=== PATIENT | female | born 1950 | race Caucasian/White ===

== ENCOUNTER 2017-08-18 09:27 | Day surgery (SDC) | payer OTHER, MEDICARE ==
[2017-08-17 16:12] VITALS: BMI 22.4
[~2017-08-18 09:27] MED LIST: Cyclopentolate 1% Opth Drop 2 ML BOT FS SCH; Fluorouracil 100 MG, Enoxaparin Sodium 25 MG, EPINEPHrine 0.3 MG in Ophthalmic Irrigati... IVPB SCH; Lidocaine 1% PF 5 ML VIAL ONE; PROPOFOL 200 MG/20 ML VIAL ONE; Phenylephrine 2.5% Ophth Soln 5 ML BOT FS SCH
[2017-08-18] MEDS ORDERED: Cyclopentolate 1% Opth Drop 2 ML BOT ONE (10:01)
[2017-08-18] MEDS ORDERED: Phenylephrine 2.5% Ophth Soln 5 ML BOT ONE (10:01)
[2017-08-18] MEDS ORDERED: PROPOFOL 20 ML ONE (11:55)
[2017-08-18] MEDS ORDERED: Midazolam HCl 2 mg/2 ml Vial ONE (11:55)
[2017-08-18] MEDS ORDERED: Fentanyl 100 MCG/2 ML VIAL ONE (11:55)
[2017-08-18] MEDS ORDERED: Lidocaine 2% 10 ML INJ ONE (11:55)
--- NOTE | 2017-08-18 16:11 | OP ---
DATE OF SURGERY: 08/18/2017 PREOPERATIVE DIAGNOSIS: Rhegmatogenous retinal detachment, right eye. POSTOPERATIVE DIAGNOSIS: Rhegmatogenous retinal detachment, right eye. PROCEDURE: Pars plana vitrectomy and retinal detachment repair, right eye. SURGEON: Modesto Cosby M.D. ANESTHESIA: Local with monitored anesthesia care. COMPLICATIONS: None. PROCEDURE IN DETAIL: The patient identified in the preoperative holding area. Appropriate informed consent for the planned surgical procedure on the right eye had been obtained. The patient was trans ported to the operative suite. Appropriate cardiopulmonary established. Local anesthesia obtained u sing retrobulbar and modified Van Lint lid block using 50:50 mixture of 4% lidocaine and 0.75% bupiva jg. The patient was prepped and draped in usual sterile manner [facility]. Lid speculum was placed in light eye. The 25-gauge trocars placed in conjunctiva and sclera supratemporally, inferotemporally and supranasally. Infusion line was placed inferotemporally. Ligh t pipe and vitreous cutter inserted into the eye and core vitrectomy was performed. Attention was tu rned to the tears at 12 o'clock, 10 o'clock position. Vitreous was trimmed from the tears. Posterio r drain retinotomy was created along the 8 o'clock meridian. Complete air fluid exchange was perform ed with 10 minutes being allowed for fluid to drain posteriorly. A 360 laser was placed using endola ser delivery device. A 28% sulfur hexafluoride gas was infused into the eye. Trocars were removed a nd eye was noted to retain pressure well. Retrobulbar Kenalog and subconjunctival Ancef were placed. Atropine and antibiotic ointment were placed and the eye was patched and shielded. The patient was taken to the postoperative recovery unit in good condition having suffered no immediate perioperativ e complications. DISCHARGE INSTRUCTIONS: Patient was instructed to remain right side down and follow up in the [facility] with Dr. Cosby.
== END 2017-08-18 13:47 | disposition home or self-care (01) ==
LOC: SDC 09:27
PROVIDERS: ATTEND Ophthalmology Retina Specialist
PROC: 08T43ZZ Resection of Right Vitreous, Percutaneous Approach (ICD-10-PCS; principal; 2017-08-18)
DX: H33.021 Retinal detachment with multiple breaks, right eye (principal)
CPT/HCPCS: 67025; J0171; J1650; J2001; J2250; J2704; J3010; J9190

== ENCOUNTER 2021-09-19 21:30 | Inpatient (IN) | payer MEDICARE ==
[2021-09-19] MEDS ORDERED: Ondansetron PF 4 MG/2 ML Vial ONE (22:03)
[2021-09-19] MEDS ORDERED: HYDROmorphone 0.5 MG/0.5 ML SYRINGE ONE (22:03)
[2021-09-19] MEDS ORDERED: Ketorolac Tromethamine 30 MG/ML VIAL ONE (22:03)
[2021-09-19 22:38] LABS: #Basophils 0.1 thou/uL (0.0-0.2); #Eosinphils 0.1 thou/uL (0.0-0.7); #Monocytes 0.6 thou/uL (0.11-0.59); #Neutrophils 6.3 thou/uL (1.40-6.50); %Basophils 1.2 % (0.0-1.0); %Eosinophils 1.6 % (0.0-10.0); %Lymphocytes 21.7 % (21.0-51.0); %Monocytes 6.1 % (0.0-10.0); %Neutrophils 69.4 % (42.0-75.0); Hemoglobin 11.6 g/dL (12.0-16.0); Mean Corpuscular HGB CONC 33.8 g/dL (32.0-36.0); Mean Corpuscular Hemoglobin 32.4 pg (27.0-31.0); Mean Corpuscular Volume 95.8 fL (78.0-98.0); Mean Platelet Volume 6.9 fL (7.4-10.4); Platelet Count 257 thou/uL (130-400); Red Blood Cell (RBC) Count 3.58 mill/uL (4.20-5.40); White Blood Cell (WBC) Count 9.1 thou/uL (4.8-10.8)
[2021-09-19] MEDS ORDERED: Morphine 2 MG/ML VIAL SLOW IVP PRN (22:55)
[2021-09-19] MEDS ORDERED: Ondansetron PF 4 MG/2 ML Vial IVP PRN (22:55)
[2021-09-19] MEDS ORDERED: Dextrose 5% in Water 1,000 ML IV PRN (22:55)
[2021-09-19] MEDS ORDERED: Morphine 4 MG/ML VIAL SLOW IVP PRN (22:55)
[2021-09-19] MEDS ORDERED: Promethazine HCl 25 MG/ML VIAL IM PRN (22:55)
[2021-09-19] MEDS ORDERED: Ondansetron ODT 4 MG TAB PO PRN (22:55)
[2021-09-19] MEDS ORDERED: Dextrose 50% Abboject 50 ML SYRINGE SLOW IVP PRN (22:55)
[2021-09-19] MEDS ORDERED: hydrALAZINE 20 MG/ML VIAL SLOW IVP PRN (22:55)
[2021-09-19 22:58] LABS: ALT (SGPT) 14 U/L (8-55); AST (SGOT) 16 U/L (5-34); Alkaline Phosphatase 73 U/L (40-110); Anion Gap 14 mmol/L (10-20); BUN (Urea Nitrogen) 18 mg/dL (9.8-20.1); Bilirubin, Total 0.5 mg/dL (0.2-1.2); Calc. Creatinine Clearance 0 mL/min (70-130); Calcium 8.6 mg/dL (7.8-10.44); Carbon Dioxide 23 mmol/L (23-31); Chloride 104 mmol/L (98-107); Globulin 2.2 g/dL (2.4-3.5); Glucose 97 mg/dL (80-115); Potassium 3.8 mmol/L (3.5-5.1); Protein, Total 6.2 g/dL (5.8-8.1); Sodium 137 mmol/L (136-145)
[2021-09-19] MEDS ORDERED: Sodium Chloride 0.9% 1,000 ML IV SCH (23:00)
[2021-09-19 23:23] LABS: Magnesium 2.1 mg/dL (1.6-2.6); Phosphorus 3.1 mg/dL (2.3-4.7)
[2021-09-20] MEDS: Acetaminophen 500 MG TAB PO SCH ×5 (00:18→20:56)
[2021-09-20] MEDS: traMADol HCl 50 MG TAB PO SCH ×5 (00:18→20:54)
[2021-09-20] MEDS: Cyclobenzaprine 10 MG TAB PO PRN ×2 (00:19→20:53)
[2021-09-20 01:09] VITALS: BMI 23.5
[2021-09-20 03:35] LABS: SARS-CoV-2 NAA Rapid Test Not Detected (NotDetected)
[2021-09-20] MEDS ORDERED: Ketorolac Tromethamine 30 MG/ML VIAL IVP SCH (06:00)
[2021-09-20] MEDS ORDERED: Morphine 4 MG/ML VIAL SLOW IVP PRN (07:54)
[2021-09-20] MEDS: Famotidine 20 MG TAB PO SCH ×2 (08:02→20:56)
[2021-09-20] MEDS: Senokot S 8.6-50 MG TAB PO SCH ×2 (08:02→20:57)
[2021-09-20] MEDS: Polyethylene Glycol 3350 17 GM Packet PO SCH (08:02)
[2021-09-20] MEDS ORDERED: Ibuprofen 200 MG TAB PO PRN (08:03)
[2021-09-20] MEDS: Fluticasone Propionate Nasal Spray 16 gm Bottle NASAL SCH (08:19)
[2021-09-20] MEDS ORDERED: ceFAZolin 2 GM/Dextrose 50 ML 2 GM in Premix Bag 1 BAG IVPB SCH (08:30)
[2021-09-20] MEDS: Loratadine 10 MG TAB PO SCH (09:20)
[2021-09-20] MEDS ORDERED: CEFAZOLIN 2 GM VIAL ONE (10:22)
[2021-09-20] MEDS ORDERED: Sodium Chloride 0.9% 100 ML ONE (10:22)
[2021-09-20] MEDS ORDERED: fentaNYL Citrate/PF 100 MCG/2 ML SYRINGE ONE (10:25)
[2021-09-20] MEDS ORDERED: Dexmedetomidine 200 MCG/2 ML VIAL ONE (10:26)
[2021-09-20] MEDS ORDERED: PROPOFOL 200 MG/20 ML VIAL ONE (11:29)
[2021-09-20] MEDS ORDERED: Dexamethasone 20 MG/5 ML VIAL ONE (11:29)
[2021-09-20] MEDS ORDERED: Lidocaine 1% PF 5 ML VIAL ONE (11:29)
[2021-09-20] MEDS ORDERED: Ondansetron PF 4 MG/2 ML Vial ONE (11:29)
[2021-09-20] MEDS ORDERED: ePHEDrine 50 MG/ML VIAL ONE (11:29)
[2021-09-20] MEDS ORDERED: Fentanyl 100 MCG/2 ML VIAL ONE (12:45)
[2021-09-20] MEDS ORDERED: Ondansetron HCl/PF 4 MG/2 ML Vial IVP PRN (12:45)
[2021-09-20] MEDS ORDERED: Promethazine HCl 25 MG/ML VIAL IM PRN (12:45)
[2021-09-20] MEDS ORDERED: Promethazine HCl 25 MG/ML VIAL IVPB PRN (12:45)
[2021-09-20] MEDS: CEFAZOLIN 2 GM in Sodium Chloride 0.9% 100 ML IVPB SCH (18:32)
[2021-09-20] MEDS: traMADol HCl 50 MG TAB PO PRN (20:54)
[2021-09-21] MEDS: Acetaminophen 500 MG TAB PO SCH ×4 (03:20→20:26)
[2021-09-21] MEDS: traMADol HCl 50 MG TAB PO SCH ×4 (03:21→20:26)
[2021-09-21] MEDS: CEFAZOLIN 2 GM in Sodium Chloride 0.9% 100 ML IVPB SCH (03:21)
[2021-09-21 05:45] LABS: #Lymphocytes 0.7 thou/uL (1.20-3.40); #Monocytes 0.9 thou/uL (0.11-0.59); %Basophils 0.1 % (0.0-1.0); %Eosinophils 0.1 % (0.0-10.0); %Lymphocytes 6.2 % (21.0-51.0); %Monocytes 8.2 % (0.0-10.0); %Neutrophils 85.4 % (42.0-75.0); Hemoglobin 10.6 g/dL (12.0-16.0); Mean Corpuscular HGB CONC 33.6 g/dL (32.0-36.0); Mean Corpuscular Hemoglobin 32.6 pg (27.0-31.0); Mean Corpuscular Volume 97.1 fL (78.0-98.0); Mean Platelet Volume 7.4 fL (7.4-10.4); Platelet Count 210 thou/uL (130-400); Red Blood Cell (RBC) Count 3.25 mill/uL (4.20-5.40); White Blood Cell (WBC) Count 10.5 thou/uL (4.8-10.8)
[2021-09-21 06:18] LABS: Anion Gap 12 mmol/L (10-20); BUN (Urea Nitrogen) 22 mg/dL (9.8-20.1); Calc. Creatinine Clearance 65 mL/min (70-130); Calcium 8.5 mg/dL (7.8-10.44); Carbon Dioxide 24 mmol/L (23-31); Chloride 105 mmol/L (98-107); Glucose 131 mg/dL (80-115); Magnesium 2.3 mg/dL (1.6-2.6); Phosphorus 3.7 mg/dL (2.3-4.7); Potassium 4.7 mmol/L (3.5-5.1); Sodium 136 mmol/L (136-145)
[2021-09-21] MEDS ORDERED: PHOS-NAK 1 PKT PACK PO SCH (08:00)
[2021-09-21] MEDS: Famotidine 20 MG TAB PO SCH ×2 (08:28→20:25)
[2021-09-21] MEDS: Aspirin 81 mg Enteric Coated Tablet PO SCH ×2 (08:28→20:28)
[2021-09-21] MEDS: Fluticasone Propionate Nasal Spray 16 gm Bottle NASAL SCH (08:29)
[2021-09-21] MEDS: Loratadine 10 MG TAB PO SCH (08:29)
[2021-09-21] MEDS: Polyethylene Glycol 3350 17 GM Packet PO SCH (08:29)
[2021-09-21] MEDS: Senokot S 8.6-50 MG TAB PO SCH ×2 (08:29→20:28)
[2021-09-21] MEDS: Cyclobenzaprine 10 MG TAB PO PRN (20:25)
[2021-09-21] MEDS: traMADol HCl 50 MG TAB PO PRN (20:27)
[2021-09-22] MEDS: Acetaminophen 500 MG TAB PO SCH ×4 (02:29→21:30)
[2021-09-22] MEDS: traMADol HCl 50 MG TAB PO SCH ×3 (02:30→21:31)
[2021-09-22 05:28] LABS: #Basophils 0.1 thou/uL (0.0-0.2); #Eosinphils 0.2 thou/uL (0.0-0.7); #Monocytes 0.9 thou/uL (0.11-0.59); #Neutrophils 6.6 thou/uL (1.40-6.50); %Basophils 0.6 % (0.0-1.0); %Eosinophils 2.4 % (0.0-10.0); %Lymphocytes 19.9 % (21.0-51.0); %Monocytes 9.6 % (0.0-10.0); %Neutrophils 67.5 % (42.0-75.0); Mean Corpuscular HGB CONC 33.4 g/dL (32.0-36.0); Mean Corpuscular Hemoglobin 32.8 pg (27.0-31.0); Mean Corpuscular Volume 98.3 fL (78.0-98.0); Mean Platelet Volume 7.4 fL (7.4-10.4); Platelet Count 205 thou/uL (130-400); RBC Distribution Width 11.4 % (11.5-14.5); Red Blood Cell (RBC) Count 3.04 mill/uL (4.20-5.40); White Blood Cell (WBC) Count 9.8 thou/uL (4.8-10.8)
[2021-09-22 06:42] LABS: Anion Gap 15 mmol/L (10-20); BUN (Urea Nitrogen) 34 mg/dL (9.8-20.1); Calc. Creatinine Clearance 33 mL/min (70-130); Calcium 8.9 mg/dL (7.8-10.44); Carbon Dioxide 23 mmol/L (23-31); Chloride 102 mmol/L (98-107); Glucose 96 mg/dL (80-115); Magnesium 2.5 mg/dL (1.6-2.6); Phosphorus 3.4 mg/dL (2.3-4.7); Potassium 4.5 mmol/L (3.5-5.1); Sodium 135 mmol/L (136-145)
[2021-09-22] MEDS: Aspirin 81 mg Enteric Coated Tablet PO SCH ×2 (08:54→21:31)
[2021-09-22] MEDS: Loratadine 10 MG TAB PO SCH (08:54)
[2021-09-22] MEDS: Famotidine 20 MG TAB PO SCH (08:54)
[2021-09-22] MEDS: Fluticasone Propionate Nasal Spray 16 gm Bottle NASAL SCH (08:57)
[2021-09-22] MEDS: Senokot S 8.6-50 MG TAB PO SCH (08:57)
[2021-09-22] MEDS: Polyethylene Glycol 3350 17 GM Packet PO SCH (08:57)
[2021-09-22] MEDS: Sodium Chloride 0.9% 1,000 ML IV SCH ×2 (11:06→21:29)
[2021-09-22 11:15] LABS: Bacteria/HPF 2+ HPF (None Seen); Bilirubin Negative (Negative); Blood, Urine 2+ (Negative); Clarity Turbid (Clear); Glucose, Urine (Dipstick) Normal (Negative); Ketone, Urine Negative (Negative); Leukocyte 500 Leu/uL (Negative); Nitrite 1+ (Negative); Protein, Urine (Dipstick) Negative (Neg-Trace); RBC/HPF 21-50 HPF (0-3); Specific Gravity, Urine 1.012 (1.002-1.036); Squamous Epithelial None Seen HPF (0-3); Urobilinogen Normal mg/dL (Less than 2); WBC/HPF Greater than 50 HPF (0-3); pH, Urine 5.5 (5.0-9.0)
[2021-09-22 11:17] LABS: Urine Culture Reflex Yes Yes
[2021-09-22] MEDS ORDERED: cefTRIAXone\\ROCEPHIN 2 GM in Sodium Chloride 0.9% 100 ML IVPB SCH (17:00)
[2021-09-22] MEDS: Cyclobenzaprine 10 MG TAB PO PRN (21:31)
[2021-09-23] MEDS: Senokot S 8.6-50 MG TAB PO SCH ×2 (00:28→09:19)
[2021-09-23] MEDS: Acetaminophen 500 MG TAB PO SCH ×3 (01:56→14:15)
[2021-09-23] MEDS: Sodium Chloride 0.9% 1,000 ML IV SCH (03:26)
[2021-09-23 06:23] LABS: Anion Gap 10 mmol/L (10-20); BUN (Urea Nitrogen) 22 mg/dL (9.8-20.1); Calc. Creatinine Clearance 72 mL/min (70-130); Calcium 8.3 mg/dL (7.8-10.44); Carbon Dioxide 25 mmol/L (23-31); Chloride 111 mmol/L (98-107); Glucose 92 mg/dL (80-115); Potassium 4.2 mmol/L (3.5-5.1); Sodium 142 mmol/L (136-145)
[2021-09-23] MEDS: Aspirin 81 mg Enteric Coated Tablet PO SCH (08:24)
[2021-09-23] MEDS: Loratadine 10 MG TAB PO SCH (08:25)
[2021-09-23] MEDS: traMADol HCl 50 MG TAB PO SCH (08:25)
[2021-09-23] MEDS: Fluticasone Propionate Nasal Spray 16 gm Bottle NASAL SCH (09:18)
[2021-09-23] MEDS: Polyethylene Glycol 3350 17 GM Packet PO SCH (09:19)
[2021-09-23 15:29] VITALS: BP 122/77; TEMP 97.1
[2021-09-23] MEDS ORDERED: Cephalexin 250 MG CAP PO SCH ×2 (18:00)
[2021-09-24] MEDS ORDERED: Saccharomyces boulardii 250 MG CAP PO SCH (09:00)
== END 2021-09-23 16:55 | DRG 481 ==
LOC: ERS 21:30 → SURG B 22:55
PROVIDERS: ADMIT Student in an Organized Health Care Education/Training Program; ATTEND Surgery
PROC: 0QH736Z Insertion of Intramedullary Internal Fixation Device into Left Upper Femur, Percutaneous Approach (ICD-10-PCS; principal; 2021-09-20)
DX: S72.142A Displaced intertrochanteric fracture of left femur, initial encounter for closed fracture (principal); N17.9 Acute kidney failure, unspecified; N39.0 Urinary tract infection, site not specified; Z20.822 Contact with and (suspected) exposure to COVID-19; W55.12XA Struck by horse, initial encounter; Z98.51 Tubal ligation status
CPT/HCPCS: 36415; 71045; 72170; 76000; 80048; 80053; 81001; 83735; 84100; 85025; 86850; 86900; 86901; 87077; 87086; 87186; 93005; 96374; 96375; C1713; J0690; J0696; J1100; J1170; J1885; J2405; J2704; J3010; J3490; J7050; P9045; U0002

== ENCOUNTER 2022-06-13 15:36 | Inpatient (IN) | payer MEDICARE, OTHER ==
[2022-06-13] MEDS ORDERED: Ketorolac Tromethamine 30 MG/ML VIAL ONE (15:58)
[2022-06-13] MEDS ORDERED: Morphine 4 MG/ML VIAL ONE ×2 (15:58→17:08)
[2022-06-13 16:19] LABS: #Basophils 0.1 thou/uL (0.0-0.2); #Eosinphils 0.1 thou/uL (0.0-0.7); #Lymphocytes 1.3 thou/uL (1.20-3.40); #Monocytes 0.5 thou/uL (0.11-0.59); #Neutrophils 5.3 thou/uL (1.40-6.50); %Basophils 1.1 % (0.0-1.0); %Eosinophils 1.7 % (0.0-10.0); %Lymphocytes 17.6 % (21.0-51.0); %Monocytes 6.9 % (0.0-10.0); %Neutrophils 72.7 % (42.0-75.0); Hemoglobin 11.8 g/dL (12.0-16.0); Mean Corpuscular HGB CONC 34.1 g/dL (32.0-36.0); Mean Corpuscular Hemoglobin 33.1 pg (27.0-31.0); Mean Corpuscular Volume 97.1 fl (78.0-98.0); Mean Platelet Volume 7.8 fL (7.4-10.4); Platelet Count 311 10x3/uL (130-400); RBC Distribution Width 11.9 % (11.5-14.5); Red Blood Cell (RBC) Count 3.56 mill/uL (4.20-5.40); White Blood Cell (WBC) Count 7.2 10x3/uL (4.8-10.8)
[2022-06-13 16:37] LABS: PTT 23.5 sec (22.9-36.1); Prothrombin Time 13.8 sec (12.0-14.7)
[2022-06-13 16:51] LABS: ALT (SGPT) 15 U/L (8-55); AST (SGOT) 21 U/L (5-34); Albumin 3.9 g/dL (3.4-4.8); Alkaline Phosphatase 80 U/L (40-110); Anion Gap 11 mmol/L (10-20); BUN (Urea Nitrogen) 19 mg/dL (9.8-20.1); Bilirubin, Total 0.2 mg/dL (0.2-1.2); Calc. Creatinine Clearance 0 mL/min (70-130); Calcium 8.5 mg/dL (7.8-10.44); Carbon Dioxide 20 mmol/L (23-31); Chloride 109 mmol/L (98-107); Estimated GFR 67; Globulin 2.1 g/dL (2.4-3.5); Glucose 100 mg/dL (80-115); Phosphorus 3.4 mg/dL (2.3-4.7); Potassium 4.4 mmol/L (3.5-5.1); Sodium 136 mmol/L (136-145)
[2022-06-13] MEDS ORDERED: Ondansetron PF 4 MG/2 ML Vial IVP PRN (16:56)
[2022-06-13] MEDS ORDERED: hydrALAZINE 20 MG/ML VIAL SLOW IVP PRN (16:56)
[2022-06-13] MEDS ORDERED: Dextrose 5% in Water 1,000 ML IV PRN (16:56)
[2022-06-13] MEDS ORDERED: Morphine 4 MG/ML VIAL SLOW IVP PRN (16:56)
[2022-06-13] MEDS ORDERED: Dextrose 50% Abboject 50 ML SYRINGE SLOW IVP PRN (16:56)
[2022-06-13] MEDS ORDERED: Cyclobenzaprine 10 MG TAB PO PRN (16:59)
[2022-06-13] MEDS ORDERED: traMADol HCl 50 MG TAB PO PRN (16:59)
[2022-06-13] MEDS ORDERED: Sodium Chloride 0.9% 1,000 ML IV SCH (17:00)
[2022-06-13 17:39] LABS: SARS-CoV-2 NAA Rapid Test Not Detected (NotDetected)
[2022-06-13 18:24] VITALS: BMI 22.8
[2022-06-13] MEDS: Senokot S 8.6-50 MG TAB PO SCH (19:58)
[2022-06-13] MEDS: Famotidine 20 MG TAB PO SCH (19:58)
[2022-06-13] MEDS: Acetaminophen 500 MG TAB PO SCH ×2 (19:59→23:51)
[2022-06-13] MEDS: Gabapentin 100 MG CAP PO SCH (19:59)
[2022-06-13] MEDS: traMADol HCl 50 MG TAB PO SCH ×2 (19:59→23:50)
[2022-06-13] MEDS: Ibuprofen 200 MG TAB PO SCH (21:20)
[2022-06-13 22:03] LABS: Bacteria/HPF None Seen HPF (None Seen); Bilirubin Negative (Negative); Blood, Urine Negative (Negative); CAUTI Indications for Culture Pelvic or flank pain; Clarity Clear (Clear); Glucose, Urine (Dipstick) Normal (Negative); Ketone, Urine Negative (Negative); Leukocyte Negative Leu/uL (Negative); Nitrite Negative (Negative); Protein, Urine (Dipstick) Negative (Neg-Trace); RBC/HPF 0-3 HPF (0-3); Specific Gravity, Urine 1.019 (1.002-1.036); Squamous Epithelial None Seen HPF (0-3); Urobilinogen Normal mg/dL (Less than 2); WBC/HPF 0-3 HPF (0-3); pH, Urine 5.5 (5.0-9.0)
[2022-06-13 22:04] LABS: Urine Culture Reflex No No
[2022-06-14] MEDS: Ibuprofen 200 MG TAB PO SCH ×3 (05:13→21:39)
[2022-06-14] MEDS: traMADol HCl 50 MG TAB PO SCH ×2 (05:13→11:42)
[2022-06-14] MEDS: Acetaminophen 500 MG TAB PO SCH ×3 (05:13→17:47)
[2022-06-14 07:09] LABS: #Eosinphils 0.1 thou/uL (0.0-0.7); #Lymphocytes 1.5 thou/uL (1.20-3.40); #Monocytes 0.7 thou/uL (0.11-0.59); #Neutrophils 3.4 thou/uL (1.40-6.50); %Basophils 0.5 % (0.0-1.0); %Eosinophils 1.6 % (0.0-10.0); %Lymphocytes 26.7 % (21.0-51.0); %Monocytes 11.4 % (0.0-10.0); %Neutrophils 59.7 % (42.0-75.0); Hemoglobin 9.1 g/dL (12.0-16.0); Mean Corpuscular HGB CONC 33.4 g/dL (32.0-36.0); Mean Corpuscular Hemoglobin 32.8 pg (27.0-31.0); Mean Platelet Volume 7.7 fL (7.4-10.4); Platelet Count 233 10x3/uL (130-400); RBC Distribution Width 11.8 % (11.5-14.5); Red Blood Cell (RBC) Count 2.79 mill/uL (4.20-5.40); White Blood Cell (WBC) Count 5.7 10x3/uL (4.8-10.8)
[2022-06-14 07:27] LABS: Anion Gap 11 mmol/L (10-20); BUN (Urea Nitrogen) 21 mg/dL (9.8-20.1); Calc. Creatinine Clearance 64 mL/min (70-130); Calcium 7.8 mg/dL (7.8-10.44); Carbon Dioxide 21 mmol/L (23-31); Chloride 108 mmol/L (98-107); Estimated GFR 64; Glucose 102 mg/dL (80-115); Phosphorus 3.3 mg/dL (2.3-4.7); Potassium 4.2 mmol/L (3.5-5.1); Sodium 136 mmol/L (136-145)
[2022-06-14] MEDS ORDERED: PHOS-NAK 1 PKT PACK PO SCH (07:45)
[2022-06-14] MEDS: Polyethylene Glycol 3350 17 GM Packet PO SCH (09:59)
[2022-06-14] MEDS: Famotidine 20 MG TAB PO SCH ×2 (09:59→21:42)
[2022-06-14] MEDS: Gabapentin 100 MG CAP PO SCH ×3 (09:59→21:41)
[2022-06-14] MEDS: Senokot S 8.6-50 MG TAB PO SCH ×2 (09:59→21:42)
[2022-06-14] MEDS ORDERED: fentaNYL PF 100 MCG/2 ML SYRINGE ONE (11:55)
[2022-06-14] MEDS ORDERED: CEFAZOLIN 2 GM VIAL ONE (11:59)
[2022-06-14] MEDS ORDERED: Sodium Chloride 0.9% 100 ML ONE (11:59)
[2022-06-14] MEDS ORDERED: Lidocaine 1% PF 5 ML VIAL ONE (12:11)
[2022-06-14] MEDS ORDERED: Ondansetron PF 4 MG/2 ML Vial ONE (12:11)
[2022-06-14] MEDS ORDERED: NEOSTIGMINE 3 MG/3 ML SYR 3 MG/3 ML SYRINGE ONE (12:11)
[2022-06-14] MEDS ORDERED: Ketorolac Tromethamine 30 MG/ML VIAL ONE (12:11)
[2022-06-14] MEDS ORDERED: ePHEDrine 50 MG/ML VIAL ONE (12:11)
[2022-06-14] MEDS ORDERED: PHENYLEPHRINE-NS 100 MCG/ML 10 ML SYRINGE ONE (12:11)
[2022-06-14] MEDS ORDERED: PROPOFOL 200 MG/20 ML VIAL ONE (12:11)
[2022-06-14] MEDS ORDERED: Dexamethasone 20 MG/5 ML VIAL ONE (12:11)
[2022-06-14] MEDS ORDERED: Rocuronium Bromide 10 MG/ML (10ML VIAL) ONE (12:11)
[2022-06-14] MEDS ORDERED: Glycopyrrolate 0.2 MG/ML 5 ML SYRINGE ONE (12:11)
[2022-06-14] MEDS ORDERED: Naloxone HCl 0.4 mg/ml Vial IV PRN (12:20)
[2022-06-14] MEDS ORDERED: Zolpidem Tartrate 5 MG TAB PO PRN (12:20)
[2022-06-14] MEDS ORDERED: diphenhydrAMINE 50 MG/ML VIAL IM PRN (12:20)
[2022-06-14] MEDS ORDERED: diphenhydrAMINE 25 MG CAP PO PRN (12:20)
[2022-06-14] MEDS ORDERED: Promethazine HCl 25 MG/ML VIAL IM PRN ×2 (12:20→13:05)
[2022-06-14] MEDS ORDERED: FENTANYL 500 MCG/10 ML VIAL 2,000 MCG in Sodium Chloride 0.9% 60 ML IV PRN (12:20)
[2022-06-14] MEDS ORDERED: Ondansetron PF 4 MG/2 ML Vial IVP PRN (12:20)
[2022-06-14] MEDS ORDERED: diphenhydrAMINE 50 MG/ML VIAL IVP PRN (12:20)
[2022-06-14] MEDS ORDERED: Communication Order-Pharmacy FS SCH (12:30)
[2022-06-14] MEDS ORDERED: ePHEDrine Sulfate 50 MG/10 ML VIAL ONE (12:41)
[2022-06-14] MEDS ORDERED: PACU-Morphine 4MG/ML VIAL SLOW IVP PRN (13:05)
[2022-06-14 16:00] LABS: #Lymphocytes 0.9 thou/uL (1.20-3.40); #Monocytes 0.4 thou/uL (0.11-0.59); #Neutrophils 8.3 thou/uL (1.40-6.50); %Basophils 0.3 % (0.0-1.0); %Eosinophils 0.3 % (0.0-10.0); %Lymphocytes 9.6 % (21.0-51.0); %Monocytes 4.3 % (0.0-10.0); %Neutrophils 85.6 % (42.0-75.0); Hemoglobin 10.2 g/dL (12.0-16.0); Mean Corpuscular HGB CONC 33.7 g/dL (32.0-36.0); Mean Platelet Volume 7.9 fL (7.4-10.4); Platelet Count 193 10x3/uL (130-400); RBC Distribution Width 12.1 % (11.5-14.5); Red Blood Cell (RBC) Count 3.08 mill/uL (4.20-5.40); White Blood Cell (WBC) Count 9.7 10x3/uL (4.8-10.8)
[2022-06-14 16:12] LABS: INR-International Normal Ratio 1.1; PTT 27.9 sec (22.9-36.1); Prothrombin Time 14.1 sec (12.0-14.7)
[2022-06-14 16:18] LABS: Lactic Acid 1.7 mmol/L (0.5-2.2)
[2022-06-14 16:21] LABS: Anion Gap 12 mmol/L (10-20); BUN (Urea Nitrogen) 17 mg/dL (9.8-20.1); Calc. Creatinine Clearance 65 mL/min (70-130); Calcium 7.9 mg/dL (7.8-10.44); Carbon Dioxide 21 mmol/L (23-31); Chloride 108 mmol/L (98-107); Estimated GFR 64; Glucose 121 mg/dL (80-115); Phosphorus 3.6 mg/dL (2.3-4.7); Potassium 3.9 mmol/L (3.5-5.1); Sodium 137 mmol/L (136-145)
[2022-06-14] MEDS: Ketorolac Tromethamine 30 MG/ML VIAL IVP SCH (17:48)
[2022-06-14] MEDS: CEFAZOLIN 2 GM in Sodium Chloride 0.9% 100 ML IVPB SCH (21:00)
[2022-06-15] MEDS: Acetaminophen 500 MG TAB PO SCH ×4 (00:42→17:00)
[2022-06-15] MEDS: Ketorolac Tromethamine 30 MG/ML VIAL IVP SCH ×5 (00:43→17:01)
[2022-06-15] MEDS: CEFAZOLIN 2 GM in Sodium Chloride 0.9% 100 ML IVPB SCH ×2 (03:34→11:03)
[2022-06-15] MEDS: Ibuprofen 200 MG TAB PO SCH ×3 (05:48→21:08)
[2022-06-15 07:19] LABS: #Lymphocytes 0.7 thou/uL (1.20-3.40); #Monocytes 0.6 thou/uL (0.11-0.59); #Neutrophils 5.3 thou/uL (1.40-6.50); %Basophils 0.4 % (0.0-1.0); %Eosinophils 0.2 % (0.0-10.0); %Lymphocytes 11.2 % (21.0-51.0); %Monocytes 8.7 % (0.0-10.0); %Neutrophils 79.6 % (42.0-75.0); Hemoglobin 8.7 g/dL (12.0-16.0); Mean Corpuscular Hemoglobin 32.1 pg (27.0-31.0); Mean Corpuscular Volume 97.3 fl (78.0-98.0); Mean Platelet Volume 8.3 fL (7.4-10.4); Platelet Count 207 10x3/uL (130-400); RBC Distribution Width 12.2 % (11.5-14.5); Red Blood Cell (RBC) Count 2.72 mill/uL (4.20-5.40); White Blood Cell (WBC) Count 6.6 10x3/uL (4.8-10.8)
[2022-06-15 07:36] LABS: Anion Gap 10 mmol/L (10-20); BUN (Urea Nitrogen) 14 mg/dL (9.8-20.1); Calc. Creatinine Clearance 76 mL/min (70-130); Carbon Dioxide 21 mmol/L (23-31); Chloride 109 mmol/L (98-107); Estimated GFR 78; Glucose 139 mg/dL (80-115); Magnesium 2.1 mg/dL (1.6-2.6); Potassium 4.4 mmol/L (3.5-5.1); Sodium 136 mmol/L (136-145)
[2022-06-15] MEDS: Famotidine 20 MG TAB PO SCH ×2 (08:16→21:09)
[2022-06-15] MEDS: Gabapentin 100 MG CAP PO SCH ×3 (08:16→21:09)
[2022-06-15] MEDS: Polyethylene Glycol 3350 17 GM Packet PO SCH (08:17)
[2022-06-15] MEDS: Senokot S 8.6-50 MG TAB PO SCH ×2 (08:17→21:00)
[2022-06-15] MEDS ORDERED: traMADol HCl 50 MG TAB PO PRN ×2 (14:14→14:15)
[2022-06-15] MEDS ORDERED: HYDROcodone/Acetaminophen 10/325 mg Tablet PO PRN ×2 (14:15→14:16)
[2022-06-15] MEDS ORDERED: Fentanyl 100 MCG/2 ML VIAL SLOW IVP PRN (14:17)
[2022-06-16] MEDS: Ketorolac Tromethamine 30 MG/ML VIAL IVP SCH ×2 (00:47→05:22)
[2022-06-16] MEDS: Acetaminophen 500 MG TAB PO SCH ×4 (00:47→18:24)
[2022-06-16] MEDS: Ibuprofen 200 MG TAB PO SCH ×2 (05:22→15:26)
[2022-06-16] MEDS ORDERED: Ascorbic Acid 500 mg Chewable Tablet PO SCH (08:00)
[2022-06-16] MEDS ORDERED: Ferrous Sulfate 325 MG TAB PO SCH (08:00)
[2022-06-16] MEDS: Senokot S 8.6-50 MG TAB PO SCH (09:26)
[2022-06-16] MEDS: Polyethylene Glycol 3350 17 GM Packet PO SCH (09:30)
[2022-06-16] MEDS: Gabapentin 100 MG CAP PO SCH ×2 (09:30→15:25)
[2022-06-16] MEDS: Famotidine 20 MG TAB PO SCH (09:33)
[2022-06-16 09:41] LABS: #Eosinphils 0.1 thou/uL (0.0-0.7); #Lymphocytes 1.3 thou/uL (1.20-3.40); #Monocytes 0.6 thou/uL (0.11-0.59); #Neutrophils 3.5 thou/uL (1.40-6.50); %Basophils 0.8 % (0.0-1.0); %Eosinophils 2.7 % (0.0-10.0); %Lymphocytes 23.9 % (21.0-51.0); %Monocytes 9.9 % (0.0-10.0); %Neutrophils 62.8 % (42.0-75.0); Hemoglobin 8.8 g/dL (12.0-16.0); Mean Corpuscular Hemoglobin 32.5 pg (27.0-31.0); Mean Corpuscular Volume 95.7 fl (78.0-98.0); Mean Platelet Volume 8.3 fL (7.4-10.4); Platelet Count 190 10x3/uL (130-400); White Blood Cell (WBC) Count 5.6 10x3/uL (4.8-10.8)
[2022-06-16 16:30] VITALS: BP 126/66; TEMP 98.5
== END 2022-06-16 19:47 | disposition home or self-care (01) | DRG 480 ==
LOC: ERS 15:36 → SURG A 16:32 → OBSVTOIN 16:32
PROVIDERS: ADMIT Surgery; ATTEND Surgery
PROC: 0QS606Z Reposition Right Upper Femur with Intramedullary Internal Fixation Device, Open Approach (ICD-10-PCS; principal; 2022-06-14)
PROC: 0QSG04Z Reposition Right Tibia with Internal Fixation Device, Open Approach (ICD-10-PCS; 2022-06-14)
PROC: 0QUG0KZ Supplement Right Tibia with Nonautologous Tissue Substitute, Open Approach (ICD-10-PCS; 2022-06-14)
DX: S82.141A Displaced bicondylar fracture of right tibia, initial encounter for closed fracture (principal); S72.141A Displaced intertrochanteric fracture of right femur, initial encounter for closed fracture; D62 Acute posthemorrhagic anemia; Z20.822 Contact with and (suspected) exposure to COVID-19; W01.0XXA Fall on same level from slipping, tripping and stumbling without subsequent striking against object, initial encounter; Z88.6 Allergy status to analgesic agent; Z98.51 Tubal ligation status; Z87.891 Personal history of nicotine dependence
CPT/HCPCS: 36415; 36430; 71045; 72170; 80048; 80053; 81001; 83605; 83735; 84100; 85025; 85610; 85730; 86850; 86900; 86901; 96374; 96375; 96376; C1713; G0390; J1100; J1650; J1885; J2270; J2405; J2704; J3490; J7050; P9016; U0002